=== PATIENT | female | born 1965 | race African-American/Black ===

== ENCOUNTER 2017-10-04 12:53 | Emergency (ER) | payer OTHER ==
[~2017-10-04] VITALS: Ht 162.6 cm; Wt 75.0 kg
[2017-10-04] MEDS ORDERED: DIPH25 PO (13:12)
[2017-10-04 14:15] VITALS: BP 137/85
[2017-10-04] MEDS ORDERED: PredniSONE 10 MG TABLET PO ONE (14:45)
[2017-10-04] MEDS ORDERED: KETOROLAC TROMETHAMINE 10 MG TABLET PO ONE (14:45)
== END 2017-10-04 14:57 | disposition home or self-care (01) ==
LOC: EMS 12:54 → EDBD 12:54 → EMS 14:57
DX: R51 Headache (principal)
CPT/HCPCS: 99283; J7512